=== PATIENT | female | born 1970 | race Two or more races ===

== ENCOUNTER 2020-04-15 08:00 | Outpatient (CLI) | payer OTHER ==
[2020-04-20] MEDS ORDERED: SYNTHROID100 MCG PO (11:14)
[2020-04-20] MEDS ORDERED: COZAAR25 MG PO (11:15)
== END 2020-04-15 15:00 | disposition home or self-care (01) ==
LOC: LAB 08:00
PROVIDERS: ATTEND Specialist
DX: Z01.818 Encounter for other preprocedural examination (principal)

== ENCOUNTER → 2020-04-20 08:00 | Outpatient (CLI) | payer OTHER ==
[~2020-04-20] VITALS: Ht 172.7 cm; Wt 95.3 kg
[~2020-04-20 08:00] MED LIST: COZAAR25 MG PO; SYNTHROID100 MCG PO
== END | disposition home or self-care (01) ==
LOC: LAB 08:00 → SURH 04-22 08:30 → EDSTATUS 04-22 08:30
PROVIDERS: ATTEND Specialist
DX: D25.9 Leiomyoma of uterus, unspecified (principal)

== ENCOUNTER → 2020-04-26 09:35 | Outpatient (CLI) | payer OTHER | END | disposition home or self-care (01) | LOC: LAB 09:35 | PROVIDERS: ATTEND Internal Medicine Hematology & Oncology | DX: D50.8 Other iron deficiency anemias (principal); R79.89 Other specified abnormal findings of blood chemistry; I10 Essential (primary) hypertension; R74.02 Elevation of levels of lactic acid dehydrogenase [LDH]; K76.89 Other specified diseases of liver; D63.8 Anemia in other chronic diseases classified elsewhere; D55.0 Anemia due to glucose-6-phosphate dehydrogenase [G6PD] deficiency; C56.2 Malignant neoplasm of left ovary; R97.8 Other abnormal tumor markers; R97.1 Elevated cancer antigen 125 [CA 125]; R97.0 Elevated carcinoembryonic antigen [CEA]; D50.0 Iron deficiency anemia secondary to blood loss (chronic); D57.3 Sickle-cell trait; E03.8 Other specified hypothyroidism ==